=== PATIENT | male | born 1995 | race Caucasian/White ===

== ENCOUNTER 2024-02-17 20:36 | Emergency (ER) | payer MEDICAID ==
[~2024-02-17] VITALS: Ht 172.7 cm; Wt 73.0 kg
[2024-02-17 21:14] VITALS: O2SAT 100
[2024-02-18] MEDS: ACETAMINOPHEN 325MG TABLET PO ONE (01:15)
[2024-02-18] MEDS ORDERED: IBUP-2029 MT (02:20)
[2024-02-18 02:52] VITALS: BP 118/82; PULSE 82; RESP 18; TEMP 98.5
== END 2024-02-18 02:53 | disposition home or self-care (01) ==
LOC: ER 20:36
DX: M25.511 Pain in right shoulder (principal); M25.562 Pain in left knee
CPT/HCPCS: 73030; 73560; 99284